=== PATIENT | female | born 1945 | race Asian ===

== ENCOUNTER 2020-01-21 14:42 | Inpatient (IN) | payer MEDICARE, MEDICAID ==
[~2020-01-21] VITALS: Ht 152.4 cm; Wt 52.0 kg
[2020-01-21 15:07] LABS: BASOPHILS % (AUTO) 0.7 % (0.0-2.0); EOSINOPHILS % (AUTO) 0.2 % (1.0-6.0); HEMATOCRIT 40.6 % (36-46); LYMPHOCYTES # (AUTO) 0.6 K/uL (1.0-4.8); LYMPHOCYTES % (AUTO) 7.7 % (22.0-44.0); MEAN CORPUSCULAR HEMOGLOBIN 28.6 pg (26.0-34.0); MEAN CORPUSCULAR VOLUME 89 fL (80-100); MONOCYTES # (AUTO) 0.3 K/uL (0.1-1.0); MONOCYTES % (AUTO) 4.1 % (2.0-9.0); NEUTROPHILS # (AUTO) 6.7 K/uL (1.8-7.7); PLATELET COUNT (AUTO) 259 K/uL (150-450); RED BLOOD CELL COUNT(AUTO) 4.55 MIL/uL (4.00-5.20); RED CELL DISTRIBUTION WIDTH 17.2 % (11.5-14.5)
[2020-01-21 15:09] LABS: NEUTROPHILS % (AUTO) 87.3 % (40.0-70.0)
[2020-01-21 15:15] LABS: CALCIUM, TOTAL 9.3 mg/dL (8.8-10.5); CREATININE 2.93 mg/dL (0.60-1.30); POTASSIUM 4.1 mmol/L (3.5-5.1)
[2020-01-21] MEDS ORDERED: ONDANSETRON HCL 4 MG/2 ML VIAL IVP ONE (15:15)
[2020-01-21] MEDS ORDERED: MORPHINE SULFATE 4 MG/ML SYRINGE IVP ONE (15:15)
[2020-01-21] MEDS ORDERED: IOVERSOL 320 MG/ML 100 ML VIAL ONE (15:18)
[2020-01-21] MEDS ORDERED: SODIUM CHLORIDE 0.9% 100 ML ONE (15:18)
[2020-01-21 15:20] LABS: PROTHROMBIN TIME 10.1 SEC (9.4-11.6)
[2020-01-21 15:21] LABS: ALBUMIN 3.9 g/dL (3.4-5.0); BILIRUBIN,TOTAL 0.7 mg/dL (0.1-1.0); TOTAL PROTEIN, SERUM 8.2 g/dL (6.4-8.2)
[2020-01-21] MEDS: NiCARDipine HCL 25 MG in DEXTROSE 5%-WATER 240 ML IV PRN ×4 (15:46→21:49)
[2020-01-21] MEDS ORDERED: 0.9% SODIUM CHLORIDE 10 ML SYRINGE IVP PRN (16:00)
[2020-01-21] MEDS ORDERED: ONDANSETRON HCL 4 MG/2 ML VIAL IVP PRN ×2 (16:00→17:30)
[2020-01-21] MEDS ORDERED: ACETAMINOPHEN 325 MG TABLET PO PRN ×2 (16:00→17:30)
[2020-01-21] MEDS ORDERED: MAGNESIUM HYDROXIDE SUSPENSION 30 ML UDCUP PO PRN (17:30)
[2020-01-21] MEDS ORDERED: HYDROCODONE/ACETAMINOPHEN 5-325 MG TABLET PO PRN (17:30)
[2020-01-21] MEDS ORDERED: MORPHINE SULFATE 2 MG/ML SYRINGE IVP PRN (17:30)
[2020-01-21] MEDS ORDERED: ZOLPIDEM TARTRATE 5 MG TABLET PO PRN (17:30)
[2020-01-21] MEDS ORDERED: BISACODYL 10 MG RECTAL RECTAL SUPPOSITORY PR PRN (17:30)
[2020-01-21 17:40] LABS: APPEARANCE,URINE CLEAR (CLEAR); BILIRUBIN,URINE NEGATIVE (NEGATIVE); GLUCOSE, URINE (UA) 100 mg/dL (NEGATIVE); KETONES,URINE NEGATIVE (NEGATIVE); LEUKOCYTE ESTERASE ,URINE SMALL (NEGATIVE); NITRATE,URINE NEGATIVE (NEGATIVE); OCCULT BLOOD,URINE SMALL (NEGATIVE); PROTEIN,URINE SEE CONFIRM (NEGATIVE); UROBILINOGEN,URINE 0.2 mg/dL (<=1.0)
[2020-01-21 17:44] LABS: AMPHET/METH SCREEN,URINE NEGATIVE (NEGATIVE); BARBITURATE SCREEN, URINE NEGATIVE (NEGATIVE); BENZODIAZEPINES SCREEN,URINE NEGATIVE (NEGATIVE); CANNABINOID SCREEN,URINE NEGATIVE (NEGATIVE); COCAINE SCREEN,URINE NEGATIVE (NEGATIVE); METHADONE SCREEN, URINE NEGATIVE (NEGATIVE); OPIATE SCREEN,URINE NEGATIVE (NEGATIVE)
[2020-01-21 17:47] LABS: SULFOSALICYLIC ACID,URINE 4+ (Negative)
[2020-01-21 17:48] LABS: PHENCYCLIDINE SCREEN,URINE NEGATIVE (NEGATIVE); RBC,URINE 0-2 /HPF (0-2)
[2020-01-21 17:49] LABS: BACTERIA,URINE Rare /HPF (None Seen); SQUAMOUS EPITHELIAL CELL,UR Rare /LPF (None Seen)
[2020-01-21] MEDS: DOCUSATE SODIUM 100 MG CAPSULE PO SCH (21:00)
[2020-01-22 03:39] LABS: GLUCOSE,POINT OF CARE 129 MG/DL (70-110)
[2020-01-22 05:06] LABS: BASOPHILS % (AUTO) 0.7 % (0.0-2.0); EOSINOPHILS % (AUTO) 0 % (1.0-6.0); HEMATOCRIT 36.7 % (36-46); LYMPHOCYTES # (AUTO) 0.5 K/uL (1.0-4.8); LYMPHOCYTES % (AUTO) 6.2 % (22.0-44.0); MEAN CORPUSCULAR HGB CONC 32.6 G/dL (31.0-37.0); MEAN CORPUSCULAR VOLUME 89 fL (80-100); MONOCYTES # (AUTO) 0.3 K/uL (0.1-1.0); MONOCYTES % (AUTO) 3.9 % (2.0-9.0); NEUTROPHILS # (AUTO) 7.5 K/uL (1.8-7.7); NEUTROPHILS % (AUTO) 89.2 % (40.0-70.0); PLATELET COUNT (AUTO) 242 K/uL (150-450); RED BLOOD CELL COUNT(AUTO) 4.12 MIL/uL (4.00-5.20); RED CELL DISTRIBUTION WIDTH 17.1 % (11.5-14.5)
[2020-01-22 05:15] LABS: PROTHROMBIN TIME 10.1 SEC (9.4-11.6)
[2020-01-22 05:28] LABS: ALBUMIN 3.8 g/dL (3.4-5.0); BILIRUBIN,TOTAL 1.1 mg/dL (0.1-1.0); CALCIUM, TOTAL 9.4 mg/dL (8.8-10.5); CREATININE 4.54 mg/dL (0.60-1.30); TOTAL PROTEIN, SERUM 7.7 g/dL (6.4-8.2)
[2020-01-22] MEDS: OXYGEN THERAPY IH SCH ×2 (07:15→21:01)
[2020-01-22] MEDS: NiCARDipine HCL 25 MG in DEXTROSE 5%-WATER 240 ML IV PRN ×4 (07:16→23:26)
[2020-01-22] MEDS: DOCUSATE SODIUM 100 MG CAPSULE PO SCH ×2 (07:18→21:00)
[2020-01-22] MEDS: PANTOPRAZOLE SODIUM 40 MG DR TABLET PO SCH (07:18)
[2020-01-22] MEDS: AmLODIPine BESYLATE 10 MG TABLET PO SCH (08:05)
[2020-01-22] MEDS ORDERED: CefTRIAXone 1 GM/DEXTROSE 50 ML IV ONE (11:15)
[2020-01-22] MEDS: METOPROLOL TARTRATE 25 MG TABLET PO SCH ×2 (11:15→21:00)
[2020-01-22 17:49] LABS: GLUCOSE,POINT OF CARE 133 MG/DL (70-110)
[2020-01-22 20:00] VITALS: BP 144/56
[2020-01-23] VITALS (9 sets, daily range): BP systolic 125–198; BP diastolic 56–113
[2020-01-23] MEDS: HydrALAZINE HCL 20 MG/ML VIAL IVP PRN ×2 (05:47→16:02)
[2020-01-23 06:32] LABS: BASOPHILS % (AUTO) 0.8 % (0.0-2.0); EOSINOPHILS % (AUTO) 0.2 % (1.0-6.0); HEMATOCRIT 36.2 % (36-46); HEMOGLOBIN 11.6 g/dL (12.0-16.0); LYMPHOCYTES % (AUTO) 12.7 % (22.0-44.0); MEAN CORPUSCULAR HEMOGLOBIN 28.7 pg (26.0-34.0); MEAN CORPUSCULAR HGB CONC 32.2 G/dL (31.0-37.0); MEAN CORPUSCULAR VOLUME 89 fL (80-100); MONOCYTES # (AUTO) 0.6 K/uL (0.1-1.0); NEUTROPHILS # (AUTO) 6.3 K/uL (1.8-7.7); NEUTROPHILS % (AUTO) 78.3 % (40.0-70.0); PLATELET COUNT (AUTO) 195 K/uL (150-450); RED BLOOD CELL COUNT(AUTO) 4.06 MIL/uL (4.00-5.20); RED CELL DISTRIBUTION WIDTH 17.3 % (11.5-14.5)
[2020-01-23 06:48] LABS: CALCIUM, TOTAL 8.5 mg/dL (8.8-10.5); CREATININE 6.52 mg/dL (0.60-1.30); POTASSIUM 4.9 mmol/L (3.5-5.1)
[2020-01-23] MEDS: AmLODIPine BESYLATE 10 MG TABLET PO SCH (09:00)
[2020-01-23] MEDS: METOPROLOL TARTRATE 25 MG TABLET PO SCH ×2 (09:00→21:00)
[2020-01-23] MEDS: DOCUSATE SODIUM 100 MG CAPSULE PO SCH ×2 (09:00→21:00)
[2020-01-23] MEDS: PANTOPRAZOLE SODIUM 40 MG DR TABLET PO SCH (09:00)
[2020-01-23] MEDS: OXYGEN THERAPY IH SCH ×2 (09:33→21:01)
[2020-01-23] MEDS ORDERED: SODIUM CHLORIDE 0.9% 250 ML IV ONE (15:40)
[2020-01-23] MEDS: CefTRIAXone 1 GM/DEXTROSE 50 ML IV SCH (15:47)
[2020-01-23] MEDS: LABETALOL HCL 5 MG/ML 20 ML VIAL IVP PRN (17:27)
[2020-01-23] MEDS: HydrALAZINE HCL 20 MG/ML VIAL IVP SCH (18:39)
[2020-01-24] VITALS (8 sets, daily range): BP systolic 119–197; BP diastolic 54–115
[2020-01-24] MEDS: HydrALAZINE HCL 20 MG/ML VIAL IVP SCH ×4 (00:35→17:52)
[2020-01-24 06:27] LABS: BASOPHILS % (AUTO) 0.6 % (0.0-2.0); EOSINOPHILS % (AUTO) 0.1 % (1.0-6.0); HEMATOCRIT 35.3 % (36-46); HEMOGLOBIN 11.3 g/dL (12.0-16.0); LYMPHOCYTES # (AUTO) 0.8 K/uL (1.0-4.8); LYMPHOCYTES % (AUTO) 10.6 % (22.0-44.0); MEAN CORPUSCULAR HEMOGLOBIN 28.4 pg (26.0-34.0); MEAN CORPUSCULAR HGB CONC 31.9 G/dL (31.0-37.0); MEAN CORPUSCULAR VOLUME 89 fL (80-100); MONOCYTES # (AUTO) 0.6 K/uL (0.1-1.0); MONOCYTES % (AUTO) 7.7 % (2.0-9.0); NEUTROPHILS # (AUTO) 6.1 K/uL (1.8-7.7); PLATELET COUNT (AUTO) 225 K/uL (150-450); RED BLOOD CELL COUNT(AUTO) 3.96 MIL/uL (4.00-5.20); RED CELL DISTRIBUTION WIDTH 17.3 % (11.5-14.5)
[2020-01-24 06:47] LABS: CALCIUM, TOTAL 8.6 mg/dL (8.8-10.5); CREATININE 8.67 mg/dL (0.60-1.30); POTASSIUM 5.3 mmol/L (3.5-5.1)
[2020-01-24] MEDS ORDERED: SODIUM CHLORIDE 0.9% 2,000 ML ONE (07:06)
[2020-01-24] MEDS: OXYGEN THERAPY IH SCH ×2 (09:35→20:36)
[2020-01-24] MEDS: PANTOPRAZOLE SODIUM 40 MG DR TABLET PO SCH (13:35)
[2020-01-24] MEDS: AmLODIPine BESYLATE 10 MG TABLET PO SCH (13:35)
[2020-01-24] MEDS: DOCUSATE SODIUM 100 MG CAPSULE PO SCH ×2 (13:35→20:47)
[2020-01-24] MEDS: METOPROLOL TARTRATE 25 MG TABLET PO SCH ×2 (13:37→20:47)
[2020-01-24] MEDS: CefTRIAXone 1 GM/DEXTROSE 50 ML IV SCH (16:20)
[2020-01-24] MEDS ORDERED: VANCOMYCIN HCL 1 GM/D5% WATER 200 ML IV ONE (18:00)
[2020-01-24] MEDS ORDERED: VANCOMYCIN HCL 1 GM/D5% WATER 200 ML IV PRN (18:00)
[2020-01-24] MEDS: LABETALOL HCL 5 MG/ML 20 ML VIAL IVP PRN (20:42)
[2020-01-25] VITALS (7 sets, daily range): BP systolic 140–200; BP diastolic 86–109
[2020-01-25] MEDS: HydrALAZINE HCL 20 MG/ML VIAL IVP SCH ×4 (05:24→17:53)
[2020-01-25 07:04] LABS: BASOPHILS % (AUTO) 0.6 % (0.0-2.0); EOSINOPHILS % (AUTO) 0.1 % (1.0-6.0); HEMATOCRIT 36.9 % (36-46); HEMOGLOBIN 11.8 g/dL (12.0-16.0); LYMPHOCYTES # (AUTO) 0.4 K/uL (1.0-4.8); LYMPHOCYTES % (AUTO) 6.4 % (22.0-44.0); MEAN CORPUSCULAR HEMOGLOBIN 28.6 pg (26.0-34.0); MEAN CORPUSCULAR HGB CONC 31.9 G/dL (31.0-37.0); MEAN CORPUSCULAR VOLUME 90 fL (80-100); MONOCYTES # (AUTO) 0.6 K/uL (0.1-1.0); MONOCYTES % (AUTO) 8.9 % (2.0-9.0); NEUTROPHILS # (AUTO) 5.6 K/uL (1.8-7.7); PLATELET COUNT (AUTO) 230 K/uL (150-450); RED BLOOD CELL COUNT(AUTO) 4.12 MIL/uL (4.00-5.20); RED CELL DISTRIBUTION WIDTH 17.4 % (11.5-14.5)
[2020-01-25 07:15] LABS: CALCIUM, TOTAL 9.8 mg/dL (8.8-10.5); CREATININE 7.18 mg/dL (0.60-1.30); POTASSIUM 4.5 mmol/L (3.5-5.1)
[2020-01-25] MEDS: METOPROLOL TARTRATE 25 MG TABLET PO SCH ×2 (08:50→20:31)
[2020-01-25] MEDS: DOCUSATE SODIUM 100 MG CAPSULE PO SCH ×2 (08:50→20:31)
[2020-01-25] MEDS: PANTOPRAZOLE SODIUM 40 MG DR TABLET PO SCH (08:51)
[2020-01-25] MEDS: AmLODIPine BESYLATE 10 MG TABLET PO SCH (08:51)
[2020-01-25] MEDS: LABETALOL HCL 5 MG/ML 20 ML VIAL IVP PRN (14:59)
[2020-01-25] MEDS: OXYGEN THERAPY IH SCH (20:00)
[2020-01-26] MEDS: HydrALAZINE HCL 20 MG/ML VIAL IVP SCH ×2 (01:08→05:56)
[2020-01-26 05:57] VITALS: BP 166/108
[2020-01-26 08:21] LABS: MAGNESIUM 2.3 mg/dL (1.80-2.40); PHOSPHORUS 8.2 mg/dL (2.5-4.9); VANCOMYCIN,RANDOM 19.1 mcg/mL (25.0-50.0)
[2020-01-26] MEDS: AmLODIPine BESYLATE 10 MG TABLET PO SCH (09:00)
[2020-01-26] MEDS ORDERED: EPOETIN ALFA 10,000 UNITS/ML 2 ML VIAL SQ SCH (09:00)
[2020-01-26] MEDS ORDERED: METOPROLOL TARTRATE 25 MG TABLET PO SCH (09:00)
[2020-01-26] MEDS: DOCUSATE SODIUM 100 MG CAPSULE PO SCH (10:30)
[2020-01-26] MEDS: PANTOPRAZOLE SODIUM 40 MG DR TABLET PO SCH (10:30)
[2020-01-26] MEDS: OXYGEN THERAPY IH SCH (10:33)
[2020-01-26 10:59] VITALS: BP 116/65
[2020-01-26] MEDS ORDERED: VANCOMYCIN HCL 750 MG in DEXTROSE 5%-WATER 250 ML IV ONE (11:00)
[2020-01-26] MEDS ORDERED: HydrALAZINE HCL 25 MG TABLET PO SCH (12:00)
[2020-01-26] MEDS ORDERED: HYDR25TA84 PO (12:17)
[2020-01-26] MEDS ORDERED: AMLO-519 PO (12:17)
[2020-01-26] MEDS ORDERED: METO25 PO (12:18)
[2020-01-26] MEDS ORDERED: LIDOCAINE/PF 1% 2 ML VIAL IM ONE (14:37)
[2020-01-26] MEDS ORDERED: MANNITOL 25%-12.5 GM/50 ML VIAL IVP ONE (14:37)
[2020-01-26 16:21] VITALS: BP 132/81
[2020-01-28] MEDS ORDERED: PROZ10 PO (13:49)
[2020-01-28] MEDS ORDERED: FOLI1TAB85 PO (13:49)
[2020-01-28] MEDS ORDERED: AMIO200T67 PO (13:49)
[2020-01-28] MEDS ORDERED: SITA100 PO (13:49)
[2020-01-28] MEDS ORDERED: NIFE-64 PO (13:49)
[2020-01-28] MEDS ORDERED: METO-558 PO (13:49)
[2020-01-28] MEDS ORDERED: INSLAN SQ (13:49)
[2020-01-28] MEDS ORDERED: PHOSLOC PO (13:49)
[2020-01-28] MEDS ORDERED: GUAI120S43 PO (13:49)
[2020-01-28] MEDS ORDERED: ATOR40TA28 PO (13:49)
[2020-01-28] MEDS ORDERED: PRED5POW11 PO (13:49)
[2020-01-28] MEDS ORDERED: PANT40TA25 PO (13:49)
[2020-01-28] MEDS ORDERED: ALBU90AE IH (13:49)
== END 2020-01-26 17:20 | disposition home or self-care (01) | DRG 64 ==
LOC: EMS 14:44 → ICU 01-22 18:21 → 5S 01-23 14:00
PROVIDERS: ADMIT Internal Medicine; ATTEND Internal Medicine
PROC: 5A1D70Z Performance of Urinary Filtration, Intermittent, Less than 6 Hours Per Day (ICD-10-PCS; principal; 2020-01-24)
PROC: 5A1D70Z Performance of Urinary Filtration, Intermittent, Less than 6 Hours Per Day (ICD-10-PCS; 2020-01-26)
DX: I61.1 Nontraumatic intracerebral hemorrhage in hemisphere, cortical (principal); N18.6 End stage renal disease; G93.6 Cerebral edema; I16.1 Hypertensive emergency; N39.0 Urinary tract infection, site not specified; E44.0 Moderate protein-calorie malnutrition; I12.0 Hypertensive chronic kidney disease with stage 5 chronic kidney disease or end stage renal disease; I62.9 Nontraumatic intracranial hemorrhage, unspecified; D63.1 Anemia in chronic kidney disease; B95.2 Enterococcus as the cause of diseases classified elsewhere; I48.91 Unspecified atrial fibrillation; E83.39 Other disorders of phosphorus metabolism; Z99.2 Dependence on renal dialysis
CPT/HCPCS: 70450; 70496; 70551; 83735; 84100; 86850; 86900; 86901; 87040; 87081; 87086; 87340; 90935; 92523; 92526; 93005; 97116; 97162; 97166; 97530; 97535; 99291; G0378; J0360; J0696; J0885; J2150; J2270; J2405; J3370; J3490; J7030; J7050; J7060